=== PATIENT | female | born 1965 | race Caucasian/White ===

== ENCOUNTER 2017-01-23 16:30 | Emergency (ER) | payer OTHER, MEDICAID ==
[2017-01-23 16:40] VITALS: RESP 16; TEMP 97.9
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
[2017-01-23 18:08] VITALS: BP 120/78; PULSE 52; O2SAT 98
== END 2017-01-23 18:08 | disposition home or self-care (01) ==
LOC: EDUNIT#
DX: S53.402A Unspecified sprain of left elbow, initial encounter (principal); S39.012A Strain of muscle, fascia and tendon of lower back, initial encounter; V49.49XA Driver injured in collision with other motor vehicles in traffic accident, initial encounter; Y92.410 Unspecified street and highway as the place of occurrence of the external cause